=== PATIENT | female | born 1940 | race Caucasian/White ===

== ENCOUNTER 2020-03-07 14:18 | Outpatient (CLI) | payer MEDICARE, OTHER | END 2020-03-07 14:19 | disposition EMS.NT | LOC: EMS 14:18 | PROVIDERS: ATTEND Surgery | DX: R52 Pain, unspecified (principal) ==

== ENCOUNTER 2020-09-09 13:54 | Outpatient (CLI) | payer MEDICARE, OTHER ==
--- NOTE | 2020-09-09 14:58 | CT Report ---
PROCEDURE: HEAD WO INDICATIONS: TIA TECHNIQUE: Noncontrast 4.5 mm thick angled axial sections acquired from the foramen magnum to the vertex. For r adiation dose reduction, the following was used: automated exposure control, adjustment of mA and/or kV according to patient size. COMPARISON: FINDINGS: Image quality: Excellent. CSF spaces: Basal cisterns are patent. No extra-axial fluid collections. The ventricles are symmet kristian in size and shape. Brain: No intracranial bleeds or masses. There is cerebral volume loss for age, with resultant vent ricular and sulcal prominence. There are periventricular and deep white matter chronic small vessel ischemic changes. There is intracranial internal carotid artery and vertebral artery atherosclerosis . Skull and face: Calvarium and visualized facial bones appear intact, without suspicious lesions. Sinuses: Visualized sinuses and mastoids are clear. IMPRESSION: No acute intracranial disease process. Reviewed by: Tracey Zhang MD, PhD on 09/09/2020 2:57 PM PST Approved by: Tracey Zhang MD, PhD on 09/09/2020 2:57 PM PST Station ID: [id number]
--- NOTE | 2020-09-09 17:22 | Ultrasound Report ---
PROCEDURE: Carotid Doppler Complete INDICATIONS: TIA, HYPOTHYROID, TRANSIENT VISUAL LOSS TECHNIQUE: Color and pulse Doppler interrogation was performed of both carotid systems, with image documentation and velocity measurements. COMPARISON: None. FINDINGS: Mild bilateral internal carotid artery plaque without significant stenosis. Right side: Common carotid artery peak systolic velocity: 80.8 cm/sec. Internal carotid artery peak systolic velocity: 86.8 cm/sec. Internal carotid artery end diastolic velocity: 22.8 cm/sec. External carotid artery peak systolic velocity: 69.1 cm/sec. ICA/CCA peak systolic ratio: 1.0 . Dove scale imaging description: Mild plaque without stenosis. Percent internal carotid artery stenosis: Minimal . Vertebral artery: Flow direction is antegrade. Left side: Common carotid artery peak systolic velocity: 73.7 cm/sec. Internal carotid artery peak systolic velocity: 112.8 cm/sec. Internal carotid artery end diastolic velocity: 25.1 cm/sec. External carotid artery peak systolic velocity: 42.9 cm/sec. ICA/CCA peak systolic ratio: 0.9 . Dove scale imaging description: Mild plaque without stenosis Percent internal carotid artery stenosis: Minimal . Vertebral artery: Flow direction is antegrade. IMPRESSION: Mild bilateral atherosclerotic plaque. Minimal, nonflow limiting bilateral internal carotid artery st enosis. The estimate of stenosis included in the report of the imaging study was calculated using the NASCET method Reviewed by: Milton Camacho MD on 09/09/2020 5:21 PM PST Approved by: Milton Camacho MD on 09/09/2020 5:21 PM PST Station ID: [id number]
== END 2020-09-09 13:55 | disposition home or self-care (01) ==
LOC: DI 13:54
PROVIDERS: ATTEND Family Medicine
DX: G45.9 Transient cerebral ischemic attack, unspecified (principal); E03.9 Hypothyroidism, unspecified; H53.123 Transient visual loss, bilateral
CPT/HCPCS: 70450; 93880

== ENCOUNTER 2021-04-16 12:28 | Outpatient (CLI) | payer MEDICARE, OTHER | END 2021-04-16 12:29 | disposition critical access hospital (66) | LOC: EMS 12:28 | DX: R55 Syncope and collapse (principal) | CPT/HCPCS: A0425; A0429 ==

== ENCOUNTER 2021-04-16 12:48 | Observation (INO) | payer MEDICARE, OTHER ==
--- NOTE | 2021-04-16 13:20 | ED Physician Documentation ---
PD HPI SYNCOPE - Stated complaint Stated Complaint: SYNCOPAL EPISODE - Chief complaint Chief Complaint: Neuro - History obtained from History obtained from: Patient, EMS - History of Present Illness Witnessed: Witnessed Timing - onset: Today Duration: Seconds (5-10) Preceding symptoms: Other ("didn't feel right"). No: Headache, Vision changes, Chest pain, Palpitations, Diaphoresis, Dyspnea, Abdominal pain, Nausea / vomiting, Light headed Associated symptoms: No: Seizure, Incontinant of urine, Incontinant of stool, Headache, Vision changes, Chest pain, Palpitations, Diaphoresis, Nausea / vomiting, Abdominal pain Contributing factors: No: Recent med change, Decreased PO intake, Noxious stimulae, Emotional upset, Just stood up, Exertion Injury occurred: Fell. 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 She states she cannot describe it any further than that. No chest pain. No palpitations, dizziness, lightheadedness, weakness. Patient had a syncopal event and was caught prior to hitting the ground. She was laid down on the ground. Briefly woke up and then passed out again. Currently is asymptomatic. No abnormalities with EMS. Patient states she has never passed out before. 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 ORDERLY: Other - Present Medications Home Medications: Ambulatory Orders Medication Instructions Recorded Confirmed Cholecalciferol [Vitamin D3] 1 tab ORAL DAILY 02/16/14 04/16/21 Fenofibrate Nanocrystallized 160 mg ORAL DAILY 02/16/14 04/16/21 [Triglide] Multivitamin [Multivitamins] 1 tab ORAL DAILY 02/16/14 04/16/21 Solifenacin Succinate [Vesicare] 10 mg ORAL DAILY 02/16/14 04/16/21 Levothyroxine Sodium [Synthroid] 50 mcg PO QDAC 04/16/21 04/16/21 - Allergies Allergies/Adverse Reactions: Allergies Allergy/AdvReac Type Severity Reaction Status Date / Time Penicillins Allergy Hives Verified 04/16/21 13:42 - Social History Does the pt smoke?: No Smoking Status: Never smoker Does the pt drink ETOH?: No Does the pt have substance abuse?: No PD ED PE NORMAL - Vitals Vital signs reviewed: Yes - General General: Alert and oriented X 3, No acute distress - HEENT HEENT: PERRL, Moist mucous membranes, Pharynx benign - Neck Neck: Supple, no meningeal sign - Cardiac Cardiac: RRR, No murmur, Strong equal pulses - Respiratory Respiratory: No respiratory distress, Clear bilaterally - Abdomen Abdomen: Soft, Non tender, Non distended - Derm Derm: Warm and dry - Extremities Extremities: No edema, No calf tenderness / cord - Neuro Neuro: No motor deficit, No sensory deficit Results - Vitals Vitals: Vital Signs - 24 hr 04/16/21 04/16/21 12:59 13:41 Temperature 36.7 C Heart Rate 76 71 Respiratory 17 24 Rate Blood Pressure 168/72 H 168/74 H O2 Saturation 98 99 Oxygen O2 Source Room air - EKG (time done) 1525 Rate: Rate (enter#) (77) Rhythm: NSR [place]: Normal Intervals: Normal HI QRS: Normal Ischemia: Normal ST segments - Labs Labs: Laboratory Tests 04/16/21 04/16/21 04/16/21 13:15 13:15 13:15 WBC 9.5 RBC 4.26 Hgb 12.5 Hct 38.9 MCV 91.3 MCH 29.3 MCHC 32.1 RDW 13.7 Plt Count 350 MPV 9.6 Neut # (Auto) 6.7 H Lymph # (Auto) 1.6 Nash # (Auto) 0.9 Eos # (Auto) 0.2 Baso # (Auto) 0.1 Absolute Nucleated RBC 0.00 Nucleated RBC % 0.0 Sodium 138 Potassium 3.8 Chloride 100 L Carbon Dioxide 27 Anion Gap 11.0 BUN 23 H Creatinine 0.9 Estimated GFR (MDRD) 60 L Glucose 122 H Calcium 9.7 Total Bilirubin 0.6 AST 17 ALT 13 Alkaline Phosphatase 59 Troponin I High Sens 4.7 Total Protein 7.0 Albumin 4.3 Globulin 2.7 Albumin/Globulin Ratio 1.6 Lipase 30 Nasal Adenovirus (PCR) Nasal B. parapertussis DNA (PCR) Nasal Coronavir 229E PCR Nasal Coronavir HKU1 PCR Nasal Coronavir NL63 PCR Nasal Coronavir OC43 PCR Nasal Enterovir/Rhinovir PCR Nasal Influenza B PCR Nasal Influenza A PCR Nasal Parainfluen 1 PCR Nasal Parainfluen 2 PCR Nasal Parainfluen 3 PCR Nasal Parainfluen 4 PCR Nasal RSV (PCR) Nasal B.pertussis DNA PCR Nasal C.pneumoniae (PCR) Selvin Human Metapneumo PCR Nasal M.pneumoniae (PCR) Nasal SARS-CoV-2 (PCR) 04/16/21 14:00 WBC RBC Hgb Hct MCV MCH MCHC RDW Plt Count MPV Neut # (Auto) Lymph # (Auto) Nash # (Auto) Eos # (Auto) Baso # (Auto) Absolute Nucleated RBC Nucleated RBC % Sodium Potassium Chloride Carbon Dioxide Anion Gap BUN Creatinine Estimated GFR (MDRD) Glucose Calcium Total Bilirubin AST ALT Alkaline Phosphatase Troponin I High Sens Total Protein Albumin Globulin Albumin/Globulin Ratio Lipase Nasal Adenovirus (PCR) NOT DETECTED Nasal B. parapertussis DNA (PCR) NOT DETECTED Nasal Coronavir 229E PCR NOT DETECTED Nasal Coronavir HKU1 PCR NOT DETECTED Nasal Coronavir NL63 PCR NOT DETECTED Nasal Coronavir OC43 PCR NOT DETECTED Nasal Enterovir/Rhinovir PCR NOT DETECTED Nasal Influenza B PCR NOT DETECTED Nasal Influenza A PCR NOT DETECTED Nasal Parainfluen 1 PCR NOT DETECTED Nasal Parainfluen 2 PCR NOT DETECTED Nasal Parainfluen 3 PCR NOT DETECTED Nasal Parainfluen 4 PCR NOT DETECTED Nasal RSV (PCR) NOT DETECTED Nasal B.pertussis DNA PCR NOT DETECTED Nasal C.pneumoniae (PCR) NOT DETECTED Selvin Human Metapneumo PCR NOT DETECTED Nasal M.pneumoniae (PCR) NOT DETECTED Nasal SARS-CoV-2 (PCR) NOT DETECTED - Rads (name of study) cxr Radiology: Prelim report reviewed, EMP read contemporaneously, See rad report (no acute abnormalities) PD MEDICAL DECISION MAKING - ED course Complexity details: reviewed results, re-evaluated patient, considered differential, d/w patient, d/w in home 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 She does not have any history of syncope in the past. No cardiac history. She ate and drink normally today. Has not recently been ill. Currently is asymptomatic. She did state that she did not feel well just immediately to the syncope, but this was seconds prior to the syncope. Concern for potential arrhythmia given her age and symptoms. We will place in observation for further care. Discussed the case with Dr. Campbell who accepts This document was made in part using voice recognition software. While efforts are made to proofread this document, sound alike and grammatical errors may occur. Departure - Departure Disposition: ED Place in Observation Clinical Impression: Syncope Qualifiers: Syncope type: unspecified Qualified Code(s): R55 - Syncope and collapse Condition: Stable
--- NOTE | 2021-04-16 13:34 | XRAY Report ---
PROCEDURE: Chest 1 View X-Ray INDICATIONS: Chest Pain TECHNIQUE: One view of the chest was acquired. COMPARISON: None FINDINGS: Surgical changes and devices: None. Lungs and pleura: No pleural effusions or pneumothorax. Lungs are clear. Mediastinum: Mediastinal contours appear normal. Heart size is normal. Bones and chest wall: No suspicious bony lesions. Age-appropriate degenerative changes are seen. Overlying soft tissues appear unremarkable. IMPRESSION: Unremarkable portable chest study for age. Reviewed by: Sebastian Camacho MD on 04/16/2021 12:33 PM ED Approved by: Sebastian Camacho MD on 04/16/2021 12:33 PM ED Station ID: [id number]
[2021-04-16 13:45] LABS: BASOPHILS # (AUTO) 0.1 10^3/uL (0.0-0.1); BASOPHILS % (AUTO) 1.1 %; EOSINOPHILS # (AUTO) 0.2 10^3/uL (0.0-0.7); EOSINOPHILS % (AUTO) 1.9 %; HCT - HEMATOCRIT 38.9 % (37.0-47.0); HGB - HEMOGLOBIN 12.5 g/dL (12.0-16.0); LYMPHOCYTES # (AUTO) 1.6 10^3/uL (1.5-3.5); LYMPHOCYTES % (AUTO) 16.9 %; MEAN CORPUSCULAR HEMOGLOBIN 29.3 pg (27.0-31.0); MEAN CORPUSCULAR HGB CONC 32.1 g/dL (32.0-36.0); MEAN CORPUSCULAR VOLUME 91.3 fL (81.0-99.0); MEAN PLATELET VOLUME 9.6 fL (7.9-10.8); MONOCYTES # (AUTO) 0.9 10^3/uL (0.0-1.0); MONOCYTES % (AUTO) 9.5 %; NEUTROPHILS # (AUTO) 6.7 10^3/uL (1.5-6.6); PLT - PLATELET COUNT 350 10^3/uL (130-450); RED BLOOD COUNT 4.26 10^6/uL (4.20-5.40); RED CELL DISTRIBUTION WIDTH 13.7 % (12.0-15.0); WHITE BLOOD COUNT 9.5 x10^3/uL (4.8-10.8)
[2021-04-16 14:00] LABS: ALBUMIN 4.3 g/dL (3.2-5.5); ALBUMIN/GLOBULIN RATIO 1.6 (1.0-2.2); BILIRUBIN,TOTAL 0.6 mg/dL (0.2-1.0); CALCIUM 9.7 mg/dL (8.5-10.3); CREATININE 0.9 mg/dL (0.4-1.0); POTASSIUM 3.8 mmol/L (3.5-5.0)
[2021-04-16] MEDS ORDERED: SODIUM CHLORIDE 0.9% 1,000 ML IV STA (14:27)
[2021-04-16 15:03] LABS: B. PARAPERTUSSIS- RESP PCR PAN NOT DETECTED; B. PERTUSSIS- RESP PCR PANEL NOT DETECTED; C. PNEUMONIAE- RESP PCR PANEL NOT DETECTED; CORONAVIRUS 229E-RESP PCR NOT DETECTED; CORONAVIRUS HKU1-RESP PCR NOT DETECTED; CORONAVIRUS NL63-RESP PCR NOT DETECTED; CORONAVIRUS OC43-RESP PCR NOT DETECTED; HUMAN METAPNEUMOVIRUS NOT DETECTED; INFLUENZA A- RESP PCR PANEL NOT DETECTED; INFLUENZA B - RESP PCR PANEL NOT DETECTED; M. PNEUMONIAE- RESP PCR PANEL NOT DETECTED; PARAINFLUENZA VIRUS 1 NOT DETECTED; PARAINFLUENZA VIRUS 2 NOT DETECTED; PARAINFLUENZA VIRUS 3 NOT DETECTED; PARAINFLUENZA VIRUS 4 NOT DETECTED; RHINOVIRUS/ENTEROVIRUS NOT DETECTED; RSV- RESP PCR PANEL NOT DETECTED; SARS-CoV-2 -RESP PCR PANEL NOT DETECTED
[2021-04-16] MEDS ORDERED: oxyCODONE 5 MG TABLET PO PRN (15:28)
[2021-04-16] MEDS ORDERED: ACETAMINOPHEN 325 MG TABLET PO PRN (15:28)
[2021-04-16] MEDS ORDERED: SODIUM CHLORIDE FLUSH 0.9% 10 ML SYRINGE IVP PRN (15:28)
--- NOTE | 2021-04-16 17:44 | HISTORY & PHYSICAL EXAMINATION ---
Chief Complaint - Chief Complaint Chief Complaint: Syncope History of Present Illness - Admitted From Admitted From:: home - History Obtained From History obtained from: patient - History of Present Illness HPI Comment/Other: Ms. Turner is a pleasant, loquacious 80yo female who was brought in to the ED today after experiencing x2 syncopal episodes that were witnessed by friends. She says this has never happened before. She woke up this morning and ate a full breakfast that included eggs, bread, orange juice, and prunes. She decided to visit her substance abuse specialist and his because she wanted to see his 's garden and thought she would bring them some [employer] pies. She says she was not dizzy at any point, walked into their house from the car and was walking back outside when she suddenly said "I don't feel well," and the next thing she knew she was waking up on the ground. She then reportedly lost consciousness again before waking up shortly after. She was reportedly caught by her friends before she fell and was assisted to the ground without injury. She denies having dizziness, chest pain, palpitations, or shortness of breath when this occurred. She states she was feeling "completely and totally fine" prior to this event, and that she feels fine now and would like to go home. She has agreed to stay overnight with cardiac monitoring and to get an ECHO tomorrow. 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 (history of D&C x1 plus two live births) : reports: Chronic bladder infection (reports very frequent UTIs) HEENT: reports: Other (bilateral lens replacements) Psych: reports: Anxiety (self-reports being "a worrier her whole life") Musculoskeletal: reports: Chronic back pain (herniated disks) Derm: reports: Other (puritic dry patches/lesions) MRSA Hx?: No - Past Surgical History Ortho: reports: Knee replacement, Spine surgery /STATION BAGGAGE AGENT: reports: Dilation and currettage, Other (x3 lumpectomy, benign) HEENT: reports: Other (refractive lensreplacement) - Family & Social History Family History: Mother: (mom: of bone cancer age 82; dad stomach cancer age 72), Cancer (mom: breast and bone cancer; dad stomach cancer; sister breast cancer), Father: , Cancer, Sister: Cancer Family History Comment/Other: The patient has "a lot of cancer" in her family (both parents, sister). Her several years ago. Shehas two children, [facility] [place] andone son who now lives in [place]. Living arrangement: At home Living Situation: Alone - Substance History Use: Uses substance without health or social issues: NONE Abuse: Recurrent use of substance despite neg consequences: NONE Dependence: Experiences withdrawal or developed tolerances: NONE - POLST Patient has POLST: No POLST Status: DNR (She has a POLST, but it is at home on her refrigerator) Meds/Allgy - Home Medications Home Medications: Ambulatory Orders Medication Instructions Recorded Confirmed Cholecalciferol [Vitamin D3] 1 tab ORAL DAILY 02/16/14 04/16/21 Fenofibrate Nanocrystallized 160 mg ORAL DAILY 02/16/14 04/16/21 [Triglide] Multivitamin [Multivitamins] 1 tab ORAL DAILY 02/16/14 04/16/21 Solifenacin Succinate [Vesicare] 10 mg ORAL DAILY 02/16/14 04/16/21 Levothyroxine Sodium [Synthroid] 50 mcg PO QDAC 04/16/21 04/16/21 - Allergies Allergies/Adverse Reactions: Allergies Allergy/AdvReac Type Severity Reaction Status Date / Time Penicillins Allergy Hives Verified 04/16/21 13:42 Review of Systems - Constitutional Constitutional: reports: Fatigue (she reports significant difficulty sleeping, only getting 2-3hrs most nights), Weight loss (she reports losing 30lbs unintentionally over the last year. Was "worked up for everything" but nothing was found. She has since begun regaining weight). denies: Fever, Chills, [place], Diaphoresis, Night sweats - Eyes Eyes: reports: Corrective lenses. denies: Pain, Irritation, Blurred vision - Ears, Nose & Throat Ears, Nose & Throat: denies: Ear pain, Hearing loss, Tinnitus, Vertigo, Nasal pain - Cardiovascular Cariovascular: reports: Other (reports occasional intercostal pain beneath her left breast that is transient, unassociated with any other symptoms, and has been going on for a long time). denies: Irregular heart rate, Palpitations, Chest pain, Edema, Lightheadedness, Syncope, Exertional dyspnea, Decr. exercise tolerance, Orthopnea - Respiratory Respiratory: denies: Cough, Sputum production, Wheezing, Orthopnea, SOB at rest, SOB with exertion, Stridor, Pleuritic pain - Gastrointestinal Gastrointestinal: reports: Abdominal pain (abdominal pain when shetakes a deep breath), Constipation. denies: Rectal bleeding, Black stools, Bloody stools, Nausea, Vomiting - Genitourinary Genitourinary: reports: Dysuria (reports frequent UTIs, currently feels slight pain on urination). denies: Frequency, Urgency, Hematuria, Incontinence - Musculoskeletal Musculoskeletal: reports: Back pain (s/p intensive spinal surgery for a herniated disc in September 2020), Stiffness (uses a cane to help her get up and down). denies: Muscle pain, Muscle weakness, Gout - Integumentary Integumentary: reports: Lesions (dry, itchy lesions globally), Dryness. denies: Rash, Pruritis, Nail changes, Hair changes - Neurological Neurological: reports: Memory problems (states mild memory problems that she associates with age). denies: Focal weakness, Headache, Dizziness, Numbness, Seizures, Slurred speech - Psychiatric Psychiatric: reports: Anxiety. denies: Depression, Suicidal, Delusions, Hallucinations, Homicidal - Endocrine Endocrine: denies: Polyuria, Polydypsia, Polyphagia - Hematologic/Lymphatic Hematologic/Lymphatic: reports: Bruising. denies: Anemia, Petechiae, Blood clots, Lymphadenopathy, Bleeding tendencies Exam - Vital Signs Vital Signs: Vital Signs x48h Temp Pulse Resp BP Pulse Ox 04/16/21 13:41 71 24 168/74 H 99 04/16/21 12:59 36.7 C 76 17 168/72 H 98 - Physical Exam General Appearance: positive: No acute distress, Alert Eyes Bilateral: positive: Other (corrective lens replacement) ENT: positive: ENT inspection nml, No signs of dehydration Neck: positive: Nml inspection, No JVD, Trachea midline Respiratory: positive: Chest non-tender, No respiratory distress, Breath sounds nml Cardiovascular: positive: Regular rate & rhythm, No murmur, No gallop Peripheral Pulses: positive: 2+ Abdomen: positive: Nml bowel sounds, Tenderness (tenderness on palpation to RLQ, epigastrium, and LUQ. She states she had a negative abdominal ultrasound. Reports frequent constipation.) Back: positive: Nml inspection Skin: positive: Color nml, No rash, Warm, Dry, Other (dry patches) Extremities: positive: Non-tender, Full ROM, Nml appearance, No pedal edema Neurologic/Psychiatric: positive: Oriented x3, Sensation nml, Mood/affect nml Conclusion/Plan - Problem List (1) Syncope Conclusion/Plan: Patient experienced syncope and collapse today while visiting her substance abuse specialist and his . She "was feeling totally fine" and then suddenly said "I don't feel well" right before she reportedly collapsed- luckily assisted to the ground by her friends. She then briefly woke up before briefly losing consciousness again. She did not have any other associated symptoms that she is aware of. She has been feeling generally well, and upon exam she is feeling "totally fine" again. CXR clear. ECG with NSR, troponin negative in the ED. Plan to get ECHO Saturday. In the meantime, she will need orthostatics and telemetry tonight. Qualifiers: Syncope type: unspecified Qualified Code(s): R55 - Syncope and collapse (2) Hypothyroidism Conclusion/Plan: Patient is on levothyroxine. Plan to check TSH with labs. (3) Hypertension Conclusion/Plan: Patient does not have a history of hypertension according to her home medication list and personal history, however SBP in 160's-170's. Continue to trend vital signs, check orthostatics. No indication to treat at this time. (4) Dysuria Conclusion/Plan: Patient reports frequent history of symptomatic UTIs. She states that she has started feeling dysuria and is uncomfortable. Plan to order UA/UC. - Lab Results Fish Bones: 04/16/21 13:15 04/16/21 13:15 Core Measures - DVT/VTE - Prophylaxis VTE/DVT Device ordered at admit?: Yes
[2021-04-16] MEDS: SODIUM CHLORIDE FLUSH 0.9% 10 ML SYRINGE IVP SCH ×2 (18:36→23:20)
[2021-04-16 22:34] LABS: BILIRUBIN,URINE NEGATIVE (NEGATIVE); GLUCOSE, URINE (UA) NEGATIVE (NEGATIVE); KETONES,URINE (UA) NEGATIVE (NEGATIVE); LEUKOCYTE ESTERASE, URINE NEGATIVE (NEGATIVE); NITRITE,URINE NEGATIVE (NEGATIVE); OCCULT BLOOD,URINE TRACE-INTA (NEGATIVE); PH,URINE 6.5 PH (5.0-7.5); PROTEIN,URINE NEGATIVE (NEGATIVE); UROBILINOGEN,URINE 0.2 (NORMAL) E.U./dL (NORMAL)
[2021-04-16 22:38] LABS: CLARITY,URINE CLEAR (CLEAR)
[2021-04-16 22:46] LABS: BACTERIA,URINE None Seen /HPF (None Seen); RBC,URINE None Seen /HPF (0-5); SQUAMOUS EPITHELIAL CELL,UR NONE SEEN (<= Few); WBC,URINE 0-3 /HPF (0-5)
--- NOTE | 2021-04-17 07:31 | PHARMACY PROGRESS NOTE ---
- Best Possible Medication History Admit Date and Time: 04/16/21 1538 Processed by: Nursing Medication History completed: Yes Patient Interview: Completed Secondary Source(s): Pharmacy records, Insurance records As the person ultimately responsible for medication therapy, providers are able to order a medication from an existing home medication list in [facility] via the "Reconcile Routine" prior to Confirmation of that medication by business support specialist. Such practice is discouraged except when the physician, in their clinical judgment, deems that a medical need exists for a medication without regard to previous use.
[2021-04-17] MEDS: SODIUM CHLORIDE FLUSH 0.9% 10 ML SYRINGE IVP SCH (08:33)
--- NOTE | 2021-04-17 13:07 | PROVIDER PROGRESS NOTE ---
Subjective - Prog Note Date Prog Note Date: 04/17/21 Prog Note Time: 13:03 - Subjective Pt reports feeling: Improved (Patient states she feels "perfectly fine" and is anxious to return home.) Objective - Vital Signs/Intake & Output Reviewed Vital Signs: Yes Vital Signs: Vital Signs x48h Temp Pulse Pulse Resp BP Pulse Ox 04/17/21 12:15 93 04/17/21 11:41 36.6 C 72 18 141/75 H 100 04/17/21 08:00 36.7 C 64 16 167/67 H 100 04/17/21 06:17 36.5 C 66 24 162/71 H 98 Intake & Output: Intake & Output 04/14/21 04/15/21 04/16/21 04/17/21 23:59 23:59 23:59 23:59 Intake Total 1461 750 Output Total 150 2000 Balance 1311 -1250 - Objective General Appearance: positive: No acute distress, Alert Respiratory: positive: Chest non-tender, No respiratory distress, Breath sounds nml Cardiovascular: positive: Regular rate & rhythm, No murmur, No gallop Abdomen: positive: Non-tender, No organomegaly, Nml bowel sounds, No distention Neurologic/Psychiatric: positive: Oriented x3, Mood/affect nml - Lab Results Fish Bones: 04/16/21 13:15 04/16/21 13:15 Other Labs: Lab Results x24hrs 04/17/21 04/16/21 04/16/21 Range/Units 05:45 22:28 19:14 WBC (4.8-10.8) x10^3/uL RBC (4.20-5.40) 10^6/uL Hgb (12.0-16.0) g/dL Hct (37.0-47.0) % MCV (81.0-99.0) fL MCH (27.0-31.0) pg MCHC (32.0-36.0) g/dL RDW (12.0-15.0) % Plt Count (130-450) 10^3/uL MPV (7.9-10.8) fL Neut # (Auto) (1.5-6.6) 10^3/uL Lymph # (Auto) (1.5-3.5) 10^3/uL [place] # (Auto) (0.0-1.0) 10^3/uL Eos # (Auto) (0.0-0.7) 10^3/uL Baso # (Auto) (0.0-0.1) 10^3/uL Absolute Nucleated RBC x10^3/uL Nucleated RBC % /100WBC Sodium (135-145) mmol/L Potassium (3.5-5.0) mmol/L Chloride (101-111) mmol/L Carbon Dioxide (21-32) mmol/L Anion Gap (6-13) BUN (6-20) mg/dL Creatinine (0.4-1.0) mg/dL Estimated GFR (MDRD) (>89) Glucose (70-100) mg/dL Calcium (8.5-10.3) mg/dL Total Bilirubin (0.2-1.0) mg/dL AST (10-42) IU/L ALT (10-60) IU/L Alkaline Phosphatase (42-121) IU/L Troponin I High Sens 10.4 (2.3-14.8) ng/L Total Protein (6.7-8.2) g/dL Albumin (3.2-5.5) g/dL Globulin (2.1-4.2) g/dL Albumin/Globulin Ratio (1.0-2.2) Lipase (22-51) U/L TSH 3.51 (0.34-5.60) uIU/mL Urine Color YELLOW Urine Clarity CLEAR (CLEAR) Urine pH 6.5 (5.0-7.5) PH Ur Specific [place] 1.010 (1.002-1.030) Urine Protein NEGATIVE (NEGATIVE) mg/dL Urine Glucose (UA) NEGATIVE (NEGATIVE) mg/dL Urine Ketones NEGATIVE (NEGATIVE) mg/dL Urine Occult Blood TRACE-INTA (NEGATIVE) Urine Nitrite NEGATIVE (NEGATIVE) Urine Bilirubin NEGATIVE (NEGATIVE) Urine Urobilinogen 0.2 (NORMAL) (NORMAL) E.U./dL Ur Leukocyte Esterase NEGATIVE (NEGATIVE) Urine RBC None Seen (0-5) /HPF Urine WBC 0-3 (0-5) /HPF Ur Squamous Epith Cells NONE SEEN (<= Few) Urine Bacteria None Seen (None Seen) /HPF Urine Culture Comments NOT INDICATED Nasal Adenovirus (PCR) Nasal B. parapertussis DNA (PCR) Nasal Coronavir 229E PCR Nasal Coronavir HKU1 PCR Nasal Coronavir NL63 PCR Nasal Coronavir OC43 PCR Nasal Enterovir/Rhinovir PCR Nasal Influenza B PCR Nasal Influenza A PCR Nasal Parainfluen 1 PCR Nasal Parainfluen 2 PCR Nasal Parainfluen 3 PCR Nasal Parainfluen 4 PCR Nasal RSV (PCR) Nasal B.pertussis DNA PCR Nasal C.pneumoniae (PCR) Selvin Human Metapneumo PCR Nasal M.pneumoniae (PCR) Nasal SARS-CoV-2 (PCR) 04/16/21 04/16/21 04/16/21 Range/Units 14:00 13:15 13:15 WBC (4.8-10.8) x10^3/uL RBC (4.20-5.40) 10^6/uL Hgb (12.0-16.0) g/dL Hct (37.0-47.0) % MCV (81.0-99.0) fL MCH (27.0-31.0) pg MCHC (32.0-36.0) g/dL RDW (12.0-15.0) % Plt Count (130-450) 10^3/uL MPV (7.9-10.8) fL Neut # (Auto) (1.5-6.6) 10^3/uL Lymph # (Auto) (1.5-3.5) 10^3/uL [place] # (Auto) (0.0-1.0) 10^3/uL Eos # (Auto) (0.0-0.7) 10^3/uL Baso # (Auto) (0.0-0.1) 10^3/uL Absolute Nucleated RBC x10^3/uL Nucleated RBC % /100WBC Sodium 138 (135-145) mmol/L Potassium 3.8 (3.5-5.0) mmol/L Chloride 100 L (101-111) mmol/L Carbon Dioxide 27 (21-32) mmol/L Anion Gap 11.0 (6-13) BUN 23 H (6-20) mg/dL Creatinine 0.9 (0.4-1.0) mg/dL Estimated GFR (MDRD) 60 L (>89) Glucose 122 H (70-100) mg/dL Calcium 9.7 (8.5-10.3) mg/dL Total Bilirubin 0.6 (0.2-1.0) mg/dL AST 17 (10-42) IU/L ALT 13 (10-60) IU/L Alkaline Phosphatase 59 (42-121) IU/L Troponin I High Sens 4.7 (2.3-14.8) ng/L Total Protein 7.0 (6.7-8.2) g/dL Albumin 4.3 (3.2-5.5) g/dL Globulin 2.7 (2.1-4.2) g/dL Albumin/Globulin Ratio 1.6 (1.0-2.2) Lipase 30 (22-51) U/L TSH (0.34-5.60) uIU/mL Urine Color Urine Clarity (CLEAR) Urine pH (5.0-7.5) PH Ur Specific [place] (1.002-1.030) Urine Protein (NEGATIVE) mg/dL Urine Glucose (UA) (NEGATIVE) mg/dL Urine Ketones (NEGATIVE) mg/dL Urine Occult Blood (NEGATIVE) Urine Nitrite (NEGATIVE) Urine Bilirubin (NEGATIVE) Urine Urobilinogen (NORMAL) E.U./dL Ur Leukocyte Esterase (NEGATIVE) Urine RBC (0-5) /HPF Urine WBC (0-5) /HPF Ur Squamous Epith Cells (<= Few) Urine Bacteria (None Seen) /HPF Urine Culture Comments Nasal Adenovirus (PCR) NOT DETECTED Nasal B. parapertussis DNA (PCR) NOT DETECTED Nasal Coronavir 229E PCR NOT DETECTED Nasal Coronavir HKU1 PCR NOT DETECTED Nasal Coronavir NL63 PCR NOT DETECTED Nasal Coronavir OC43 PCR NOT DETECTED Nasal Enterovir/Rhinovir PCR NOT DETECTED Nasal Influenza B PCR NOT DETECTED Nasal Influenza A PCR NOT DETECTED Nasal Parainfluen 1 PCR NOT DETECTED Nasal Parainfluen 2 PCR NOT DETECTED Nasal Parainfluen 3 PCR NOT DETECTED Nasal Parainfluen 4 PCR NOT DETECTED Nasal RSV (PCR) NOT DETECTED Nasal B.pertussis DNA PCR NOT DETECTED Nasal C.pneumoniae (PCR) NOT DETECTED Selvin Human Metapneumo PCR NOT DETECTED Nasal M.pneumoniae (PCR) NOT DETECTED Nasal SARS-CoV-2 (PCR) NOT DETECTED 04/16/21 Range/Units 13:15 WBC 9.5 (4.8-10.8) x10^3/uL RBC 4.26 (4.20-5.40) 10^6/uL Hgb 12.5 (12.0-16.0) g/dL Hct 38.9 (37.0-47.0) % MCV 91.3 (81.0-99.0) fL MCH 29.3 (27.0-31.0) pg MCHC 32.1 (32.0-36.0) g/dL RDW 13.7 (12.0-15.0) % Plt Count 350 (130-450) 10^3/uL MPV 9.6 (7.9-10.8) fL Neut # (Auto) 6.7 H (1.5-6.6) 10^3/uL Lymph # (Auto) 1.6 (1.5-3.5) 10^3/uL [place] # (Auto) 0.9 (0.0-1.0) 10^3/uL Eos # (Auto) 0.2 (0.0-0.7) 10^3/uL Baso # (Auto) 0.1 (0.0-0.1) 10^3/uL Absolute Nucleated RBC 0.00 x10^3/uL Nucleated RBC % 0.0 /100WBC Sodium (135-145) mmol/L Potassium (3.5-5.0) mmol/L Chloride (101-111) mmol/L Carbon Dioxide (21-32) mmol/L Anion Gap (6-13) BUN (6-20) mg/dL Creatinine (0.4-1.0) mg/dL Estimated GFR (MDRD) (>89) Glucose (70-100) mg/dL Calcium (8.5-10.3) mg/dL Total Bilirubin (0.2-1.0) mg/dL AST (10-42) IU/L ALT (10-60) IU/L Alkaline Phosphatase (42-121) IU/L Troponin I High Sens (2.3-14.8) ng/L Total Protein (6.7-8.2) g/dL Albumin (3.2-5.5) g/dL Globulin (2.1-4.2) g/dL Albumin/Globulin Ratio (1.0-2.2) Lipase (22-51) U/L TSH (0.34-5.60) uIU/mL Urine Color Urine Clarity (CLEAR) Urine pH (5.0-7.5) PH Ur Specific [place] (1.002-1.030) Urine Protein (NEGATIVE) mg/dL Urine Glucose (UA) (NEGATIVE) mg/dL Urine Ketones (NEGATIVE) mg/dL Urine Occult Blood (NEGATIVE) Urine Nitrite (NEGATIVE) Urine Bilirubin (NEGATIVE) Urine Urobilinogen (NORMAL) E.U./dL Ur Leukocyte Esterase (NEGATIVE) Urine RBC (0-5) /HPF Urine WBC (0-5) /HPF Ur Squamous Epith Cells (<= Few) Urine Bacteria (None Seen) /HPF Urine Culture Comments Nasal Adenovirus (PCR) Nasal B. parapertussis DNA (PCR) Nasal Coronavir 229E PCR Nasal Coronavir HKU1 PCR Nasal Coronavir NL63 PCR Nasal Coronavir OC43 PCR Nasal Enterovir/Rhinovir PCR Nasal Influenza B PCR Nasal Influenza A PCR Nasal Parainfluen 1 PCR Nasal Parainfluen 2 PCR Nasal Parainfluen 3 PCR Nasal Parainfluen 4 PCR Nasal RSV (PCR) Nasal B.pertussis DNA PCR Nasal C.pneumoniae (PCR) Selvin Human Metapneumo PCR Nasal M.pneumoniae (PCR) Nasal SARS-CoV-2 (PCR) - Diagnostic Imaging Diagnostic Imaging Results: positive: Final report reviewed (CXR, ECHO, EKG, UA all reviewed) Assessment/Plan - Problem List (1) Syncope Impression: Patient experienced syncope and collapse yesterday while visiting her digital experience manager and his . She "was feeling totally fine" and then suddenly said "I don't f eel well" right before she reportedly collapsed- luckily assisted to the ground by her friends. She then briefly woke up before briefly losing consciousness again. She did not have any other associated symptoms that she is aware of. She has been feeling generally well, and upon exam she is feeling "totally fine" again. CXR clear. ECG with NSR, troponin negative in the ED. Today, her ECHO does not reveal any underlying cause for her collapse nor does overnight telemetry. Her orthostatics have been negative and her walking O2 saturation test showed she does not require oxygen. Per verbal report by RT, the patient's knees buckled and she became weak and had an unsteady gait while ambulating with the walking sat test. Will order a PT evaluation. The results of this will guide her discharge disposition. Otherwise, all other workups for syncope have been negative. (2) Hypothyroidism Conclusion/Plan: Patient is on levothyroxine. TSH level normal. (3) Hypertension Conclusion/Plan: Patient does not have a history of hypertension according to her home medication list and personal history, however SBP in 160's-170's on admission. Continue to trend vital signs, check orthostatics. No indication to treat at this time. (4) Dysuria Conclusion/Plan: Patient reports frequent history of symptomatic UTIs. She states that she has started feeling dysuria and is uncomfortable. UA negative for infection. Qualifiers: Syncope type: unspecified Qualified Code(s): R55 - Syncope and collapse
--- NOTE | 2021-04-17 16:37 | DISCHARGE SUMMARY ---
Discharge Summary Admit Date: 04/16/21 Discharge Date: 04/17/21 Discharging Provider: Dr. Campbell Primary Care Provider: Dr. Perry Code Status: Do Not Attempt Resuscitation Condition at Discharge: Stable Discharge Disposition: 01 Home, Self Care - DIAGNOSES Discharge Diagnoses with Status of Each Condition: Syncope, most likely vasovagal - HPI History of Present Illness: Ms. Turner is a pleasant, loquacious 80yo female who was brought in to the ED yesterday after experiencing x2 syncopal episodes that were witnessed by friends. She says this has never happened before. She was visiting her rn acls and his , walked into their house from the car and was walking back outside when she suddenly said "I don't feel well," and the next thing she knew she was waking up on the ground. She then reportedly lost consciousness again before waking up shortly after. She was reportedly caught by her friends before she fell and was assisted to the ground without injury. She denied having dizziness, chest pain, palpitations, or shortness of breath when this occurred. She states she was feeling "completely and totally fine" prior to this event. She agreed to stay overnight with cardiac monitoring and to get an ECHO today. - CONSULTS | PROCEDURES Procedures: 1. CXR, normal 2. ECHO, normal 3. EKG, normal - HOSPITAL COURSE Hospital Course: A full work-up for syncope was ordered. Troponin, EKG, CXR, orthostatic VS, TSH, UA, and walking oxygen saturation test were all ordered and did not produce results that would explain her syncopal event. In fact, Ms. Turner appears generally very healthy given her age and family history of disease. The only main deficits noted during her stay was mild HTN, an unsteady gait and ambulatory weakness. A PT consult was ordered and a front-wheel walker was delivered to the patient for her to take home. We do not believe her hypertension is problematic at this time, and she is closely monitored by her PCP as an outpatient. - ALLERGIES Allergies/Adverse Reactions: Allergies Allergy/AdvReac Type Severity Reaction Status Date / Time Penicillins Allergy Hives Verified 04/16/21 13:42 - MEDICATIONS Home Medications: Ambulatory Orders Medication Instructions Recorded Confirmed Cholecalciferol [Vitamin D3] 1 tab ORAL DAILY 02/16/14 04/16/21 Fenofibrate Nanocrystallized 160 mg ORAL DAILY 02/16/14 04/16/21 [Triglide] Multivitamin [Multivitamins] 1 tab ORAL DAILY 02/16/14 04/16/21 Solifenacin Succinate [Vesicare] 10 mg ORAL DAILY 02/16/14 04/16/21 Levothyroxine Sodium [Synthroid] 50 mcg PO QDAC 04/16/21 04/16/21 - PHYSICAL EXAM AT DISCHARGE General Appearance: positive: No acute distress, Alert Eyes Bilateral: positive: Normal inspection Neck: positive: Nml inspection, Thyroid nml, No JVD, Trachea midline Respiratory: positive: Chest non-tender, No respiratory distress, Breath sounds nml Cardiovascular: positive: Regular rate & rhythm, No murmur, No gallop Peripheral Pulses: positive: 2+ Abdomen: positive: Non-tender, No organomegaly, Nml bowel sounds Back: positive: Nml inspection Skin: positive: Color nml, No rash, Warm, Dry Extremities: positive: Non-tender, Nml appearance Neurologic/Psychiatric: positive: Oriented x3, Mood/affect nml - LABS Result Diagrams: 04/16/21 13:15 04/16/21 13:15 - DIAGNOSTIC IMAGING Diagnostic Imaging Results: Final report reviewed
[2021-04-17 16:54] VITALS: BP 152/79
--- NOTE | 2021-04-17 17:02 | Discharge Plan ---
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 We evaluated you for stroke, heart attack, heart irregularly, anemia, dehydration, infection. None of those were present. We did notice that when you keep on talking, you talk with a very fast speech pattern and you do not take a breath. If that goes on for too long we noticed that your oxygen goes down. We then had physical therapy evaluate you to make sure your balance was okay and you need a walker. We did a heart ultrasound and your valves in your heart are normal. Plan of Treatment: At this time you just need to follow-up with your regular primary care provider. Keep tabs on your blood pressure by checking it once a day. Check your pulse once a day. And see your doctor in follow-up to let them know that you are here. Care Goals: Not passed out again Assessment: Patient states that she understands care plan and will follow through No Smoking: If you smoke, Please STOP! Call for help. Follow-up with: Jamarcus Gonzalez MD [Primary Care Provider] -
== END 2021-04-17 17:40 | disposition home or self-care (01) ==
LOC: EDUNIT# → ED 12:48 → MS2 15:38
PROVIDERS: ADMIT Specialist; ATTEND Specialist
DX: R55 Syncope and collapse (principal); I10 Essential (primary) hypertension; R30.0 Dysuria; E78.00 Pure hypercholesterolemia, unspecified; E03.9 Hypothyroidism, unspecified; R26.81 Unsteadiness on feet; G89.29 Other chronic pain; M54.9 Dorsalgia, unspecified; Z20.822 Contact with and (suspected) exposure to COVID-19; R53.83 Other fatigue; R53.1 Weakness; R10.9 Unspecified abdominal pain; Z79.899 Other long term (current) drug therapy; Z66 Do not resuscitate; Z96.659 Presence of unspecified artificial knee joint; Z87.440 Personal history of urinary (tract) infections; Z98.42 Cataract extraction status, left eye; Z98.41 Cataract extraction status, right eye; Z96.1 Presence of intraocular lens
CPT/HCPCS: 36415; 71045; 80053; 81001; 83690; 84443; 84484; 85025; 87631; 93005; 93306; 94761; 97161; 99284; 99285; A9270; G0378; 0202U; 87086

== ENCOUNTER 2022-04-22 14:25 | Outpatient (CLI) | payer MEDICARE, OTHER | END 2022-04-22 14:26 | disposition EMS.NT | LOC: EMS 14:25 | DX: R42 Dizziness and giddiness (principal); H53.8 Other visual disturbances; R47.81 Slurred speech; R32 Unspecified urinary incontinence ==

== ENCOUNTER 2024-01-06 08:00 | Outpatient (CLI) | payer MEDICARE, OTHER ==
[2024-01-06 23:53] LABS: BACTERIAL VAGINOSIS DNA NEGATIVE (NEGATIVE); CANDIDA GLABRATA DNA NEGATIVE (NEGATIVE); CANDIDA GROUP DNA NEGATIVE (NEGATIVE); CANDIDA KRUSEI DNA NEGATIVE (NEGATIVE); TRICHOMONAS VAGINALIS DNA NEGATIVE (NEGATIVE)
== END 2024-01-06 23:59 | disposition home or self-care (01) ==
LOC: LAB.WC 08:00
PROVIDERS: ATTEND Nurse Practitioner
DX: N89.8 Other specified noninflammatory disorders of vagina (principal)
CPT/HCPCS: 81514; 81599